=== PATIENT | male | born 1945 | race African-American/Black ===

== ENCOUNTER → 2016-03-22 | Outpatient (CLI) | payer MEDICARE, OTHER ==
--- NOTE | 2016-03-22 10:50 | XR ---
EXAM TYPE: LUMBAR SPINE X RAY SERIES COMPARISON: Postop fusion HISTORY: Postop fusion COMPARISON: 02/12/2016 FINDINGS: Alignment is anatomic. The pedicles are intact. The transverse processes are intact. There is no s pondylolysis or spondylolisthesis. Postsurgical changes are noted. Hypertrophic change of the spine noted. Vascular calcification seen. IMPRESSION: 1. Postoperative change appears in near-anatomic alignment.
== END | disposition home or self-care (01) ==
LOC: RADXRMAIN 09:52
DX: M43.26 Fusion of spine, lumbar region (principal); Z98.890 Other specified postprocedural states
CPT/HCPCS: 72100

== ENCOUNTER → 2016-05-14 | Outpatient (CLI) | payer MEDICARE, OTHER ==
--- NOTE | 2016-05-14 22:46 | XR ---
EXAMINATION TYPE: XR pelvis AP view DATE OF EXAM: 05/14/2016 8:17 PM COMPARISON: NONE HISTORY: Bilateral hip pain TECHNIQUE: Single view FINDINGS: Pelvic ring appears intact. There is moderate hypertrophic osteoarthritis in the hip joints . There is multilevel lower lumbar laminectomy defect noted. Sacroiliac joints appear intact. IMPRESSION: Moderate osteoarthritis in the hip joints. No fracture seen.
--- NOTE | 2016-05-14 22:47 | XR ---
EXAMINATION TYPE: XR Hip Bilateral Complete DATE OF EXAM: 05/14/2016 8:17 PM COMPARISON: NONE HISTORY: Bilateral hip pain TECHNIQUE: 4 views FINDINGS: AP and oblique views of both hips show moderately severe narrowing of the hip joint spaces. This is worse on the left side. There is acetabular spurring. There is femoral head spurring. I see no fracture. IMPRESSION: Moderately severe hypertrophic osteoarthritis. No fracture seen.
== END ==
LOC: RADXRMAIN 12:23
PROVIDERS: ATTEND Internal Medicine
DX: M16.0 Bilateral primary osteoarthritis of hip (principal)
CPT/HCPCS: 72170; 73521

== ENCOUNTER → 2016-05-15 | Outpatient (CLI) | payer MEDICARE, OTHER ==
[2016-05-15 08:08] LABS: Anion Gap 12 mmol/L; Calcium 10.1 mg/dL (8.4-10.2); Carbon Dioxide 29 mmol/L (22-30); Chloride 101 mmol/L (98-107); Glucose 88 mg/dL (74-99); Non-African American GFR(MDRD) >60 (>60 ml/min/1.73 sqM); Sodium 142 mmol/L (137-145); Uric Acid 6.4 mg/dL (3.5-8.5)
[2016-05-15 08:13] LABS: ALT 46 U/L (21-72); AST 50 U/L (17-59); Blood Urea Nitrogen 24 mg/dL (9-20); Potassium 5.4 mmol/L (3.5-5.1)
[2016-05-15 09:11] LABS: Cholesterol 117 mg/dL (<200); HDL Cholesterol 52 mg/dL (40-60); Triglycerides 148 mg/dL (<150)
== END | disposition home or self-care (01) ==
LOC: LABWHC1 07:20
PROVIDERS: ATTEND Internal Medicine
DX: E78.5 Hyperlipidemia, unspecified (principal); I10 Essential (primary) hypertension; E11.43 Type 2 diabetes mellitus with diabetic autonomic (poly)neuropathy; M10.9 Gout, unspecified
CPT/HCPCS: 36415; 80048; 80061; 83036; 84450; 84460; 84550

== ENCOUNTER → 2016-07-28 | Outpatient (CLI) | payer MEDICARE, OTHER ==
--- NOTE | 2016-07-28 11:01 | XR ---
EXAMINATION TYPE: XR lumbar spine 2 or 3V DATE OF EXAM ORDERED: 07/28/2016 HISTORY: M47.26 spondylosis with radiculopathy M99.73 stenosis. COMPARISON: Previous study dated 03/22/2016. FINDINGS: There has been an interpedicular fusion at L3-4. Spacing material has been placed. There i s been a laminectomy extending from L3 through L5. There is a residual interpedicular screw in the ri ght side of the S1 vertebral body. There is mild spondylosis deformans in the upper lumbar spine. Alignment is normal. There is no spond ylolysis or spondylolisthesis. There has been interval change in the appearance of the spine. IMPRESSION: NO INTERVAL CHANGE IN THE APPEARANCE OF THE LUMBAR SPINE.
== END | disposition home or self-care (01) ==
LOC: RADXRMAIN 10:20
DX: M99.73 Connective tissue and disc stenosis of intervertebral foramina of lumbar region (principal); M47.26 Other spondylosis with radiculopathy, lumbar region
CPT/HCPCS: 72100

== ENCOUNTER → 2016-09-22 | Outpatient (CLI) | payer MEDICARE, OTHER ==
[2016-09-22 08:23] LABS: Appearance,Urine Clear (Clear); Bilirubin,Urine Negative (Negative); CH 30.7; CHCM 33.4; Glucose,Urine (UA) Negative (Negative); HCT 49.1 % (39.0-53.0); HDW 2.57; HGB 15.9 gm/dL (13.0-17.5); Ketones,Urine Negative (Negative); Leukocyte Esterase,Urine Negative (Negative); MCH 29.9 pg (25.0-35.0); MCHC 32.5 g/dL (31.0-37.0); MCV 92.3 fL (80.0-100.0); Mean Platelet Volume 8.5; Nitrite,Urine Negative (Negative); Protein,Urine Negative (Negative); RBC 5.32 m/uL (4.30-5.90); RDW 15.2 % (11.5-15.5); Specific Gravity,Urine 1.014 (1.001-1.035); UA Billing (MACRO vs. MICRO) CHEM; Urobilinogen,Urine <2.0 mg/dL (<2.0); WBC 8.2 k/uL (3.8-10.6)
[2016-09-22 08:27] LABS: Partial Thromboplastin Time 25.2 sec (22.0-30.0); Prothrombin Time 10.2 sec (9.0-12.0)
[2016-09-22 08:54] LABS: ALT 57 U/L (21-72); AST 42 U/L (17-59); Alkaline Phosphatase 111 U/L (38-126); Anion Gap 14 mmol/L; Blood Urea Nitrogen 24 mg/dL (9-20); Calcium 10.3 mg/dL (8.4-10.2); Carbon Dioxide 27 mmol/L (22-30); Chloride 99 mmol/L (98-107); Glucose 126 mg/dL (74-99); Non-African American GFR(MDRD) >60 (>60 ml/min/1.73 sqM); Potassium 4.7 mmol/L (3.5-5.1); Sodium 140 mmol/L (137-145); Total Bilirubin 1.2 mg/dL (0.2-1.3); Total Protein 8.4 g/dL (6.3-8.2)
== END | disposition home or self-care (01) ==
LOC: LABPAT 07:46
PROVIDERS: ATTEND Orthopaedic Surgery
DX: Z01.812 Encounter for preprocedural laboratory examination (principal)
CPT/HCPCS: 80053; 81003; 85027; 85610; 85730; 87070

== ENCOUNTER → 2016-09-27 | Outpatient (CLI) | payer MEDICARE, OTHER | END | disposition home or self-care (01) | LOC: LABPAT 08:07 | PROVIDERS: ATTEND Orthopaedic Surgery | DX: Z01.810 Encounter for preprocedural cardiovascular examination (principal); I10 Essential (primary) hypertension | CPT/HCPCS: 86850; 86900; 86901; 93005 ==

== ENCOUNTER 2016-10-04 07:30 | Inpatient (IN) | payer MEDICARE, OTHER ==
[2016-09-24 15:07] VITALS: BMI 28.1
--- NOTE | 2016-09-27 05:13 | CONS ---
Mr. Beckford is scheduled for left hip arthroplasty by Dr. Tay Cheema on the of this month at [facility]. We have been asked to see him in general for his medical concerns and clearance. Mr. Beckford besides the osteoarthritis of the left hip has had type 2 diabetes, hypertension, hyperlipidemia, history of gout and history of lower lumbar osteoarthritis. He has had previous lumbar surgeries. He also has had left carotid revascularization and he also has had carpal tunnel surgery in both hands, a placement of cardiac stent for his coronary artery disease. His home medications include amlodipine 10 mg daily for blood pressure along with hydrochlorothiazide 50 mg daily and Ramipril 2.5 mg daily. He takes atenolol 50 mg for his underlying heart disease along with metformin 500 mg 1 twice a day for diabetes, allopurinol 100 mg 2 tablets daily to lower his uric acid and atorvastatin 20 mg for his elevated cholesterol and meloxicam which he is to stop at least one week prior to surgery 15 mg daily for osteoarthritic discomfort. Apparently, he has had some reaction with over sedation on diazepam. REVIEW OF SYSTEMS: He denies any chest pain or unusual shortness of breath. No nausea, vomiting. Denied any urinary or bowel symptomatology. No unusual leg edema. SOCIAL HISTORY: He lives locally in the [facility]. He quit smoking back in 2012. Denies any excessive alcohol usage. FAMILY HISTORY: Had a brother with diabetes. Physical examination reveals him to be a pleasant gentleman in no acute distress. He is pleasant and alert with BMI 28.4 with his weight 186 and height 68 inches. Blood pressure was 122/80. Respirations were 14. Head and neck is unremarkable. No definite adenopathy, thyromegaly or bruits in the neck. Lungs were clear to auscultation. HEART: Regular without murmurs. ABDOMEN: Soft and nontender without rebound, guarding or masses. Extremities reveal no unusual edema. Neurologically, he is alert and oriented. Cranial nerves intact. No focal weakness noted. Patient did have laboratory values performed and urinalysis, which has generally been acceptable and satisfactory for upcoming surgery and EKG apparently was suppose to be done at [facility] and at this point generally I see no contraindication to planned surgery. The patient does have coronary artery disease along with the other comorbidities as stated above, but they do appear to be stable. He is to take his beta tiffany, atenolol, with a small sip of water in the morning. He will be followed with Accu-Cheks for his blood sugar postop and coverage if necessary and not to take any aspirin or anti- inflammatory medications one week prior to his surgery. Once again, his upcoming surgery is on the at [facility] in [place]. BRANDIN
[~2016-10-04 07:30] MED LIST: ACETAMINOPHEN TAB 500 MG TAB PO ONE; DEXAMETHASONE SOD PHOSPHATE 10 MG/ML 1 ML VIAL IV ONE; HYDROmorphone 1 MG/ML 1 ML SYRINGE IVP PRN; MELOXICAM 7.5 MG TAB PO ONE; ONDANSETRON 4 MG/2 ML VIAL IVP ONE; TRANEXAMIC ACID 1,000 MG in SODIUM CHLORIDE 0.9% 100 ML IVPB ONE; ceFAZolin 2 GM in SODIUM CHLORIDE 0.9% 100 ML IVPB ONE
[2016-10-04] MEDS: LACTATED RINGERS 1,000 ML IV SCH (11:21)
[2016-10-04] MEDS ORDERED: LIDOCAINE 1% 20 ML VIAL (10MG/ML) FOR IV START INTRADERMA ONE (11:24)
[2016-10-04 11:27] LABS: Glucose,Whole Blood 125 mg/dL (75-99)
[2016-10-04] MEDS ORDERED: MIDAZOLAM 2 MG/2 ML VIAL IVP ONE (11:37)
[2016-10-04] MEDS ORDERED: ROPIVACAINE 246.25 MG, EPINEPHrine 0.5 MG, KETOROLAC 30 MG, cloNIDine HCL/PF 80 MCG, WA... MISCELLANE ONE ×5 (12:47)
[2016-10-04] MEDS ORDERED: MIDAZOLAM 2 MG/2 ML VIAL ONE (12:56)
[2016-10-04] MEDS ORDERED: ONDANSETRON 4 MG/2 ML VIAL ONE (12:56)
[2016-10-04] MEDS ORDERED: fentaNYL (PF) 50 MCG/ML 2 ML AMP ONE (12:56)
[2016-10-04] MEDS ORDERED: TRANEXAMIC ACID 1,000 MG/10 ML VIAL ONE (12:56)
[2016-10-04] MEDS ORDERED: NEOSTIGMINE 1 MG/ML 10 ML VIAL ONE (12:56)
[2016-10-04] MEDS ORDERED: SODIUM CHLORIDE 0.9% 100 ML BAG ONE (12:56)
[2016-10-04] MEDS ORDERED: SUCCINYLCHOLINE CHLORIDE 100 MG/5 ML SYR IV ONE (12:56)
[2016-10-04] MEDS ORDERED: HYDROmorphone (PF) 1 MG/ML ONE (12:56)
[2016-10-04] MEDS ORDERED: LIDOCAINE 1% INJ 10MG/ML (20 ML MDV) ONE (12:56)
[2016-10-04] MEDS ORDERED: GLYCOPYRROLATE 0.2 MG/ML 2 ML VIAL ONE (12:56)
[2016-10-04] MEDS ORDERED: ROCURONIUM BROMIDE 10 MG/ML 10 ML VIAL IV ONE (12:56)
[2016-10-04] MEDS ORDERED: NALOXONE 0.4 MG/ML 1 ML VIAL IV PRN (12:59)
[2016-10-04] MEDS ORDERED: DIAZEPAM 5 MG TAB PO PRN ×2 (12:59)
[2016-10-04] MEDS ORDERED: HYDROmorphone 1 MG/ML 1 ML SYRINGE IVP PRN ×3 (12:59)
[2016-10-04] MEDS ORDERED: ONDANSETRON 4 MG/2 ML VIAL IVP PRN (12:59)
[2016-10-04] MEDS ORDERED: MAGNESIUM HYDROXIDE 2,400 MG/10 ML CUP PO PRN (12:59)
[2016-10-04] MEDS ORDERED: ceFAZolin 3,000 MG in SODIUM CHLORIDE 0.9% IRRIGATIO 3,000 ML IRRIGATION ONE (13:36)
[2016-10-04] MEDS ORDERED: LACTATED RINGERS 1,000 ML IV ONE (14:21)
--- NOTE | 2016-10-04 15:01 | FL ---
Fluoroscopy HISTORY: Hip replacement 17 seconds fluoroscopy time supplied to the referring clinician. 2 intraoperative C-arm images docum ent the procedure. See dictated report from orthopedic surgery.
--- NOTE | 2016-10-04 15:01 | XR ---
Limited left hip HISTORY: Anterior hip replacement Intraoperative C-arm images document the procedure
--- NOTE | 2016-10-04 15:10 | XR ---
EXAMINATION TYPE: XR Hip Limited LT DATE OF EXAM: 10/04/2016 CLINICAL HISTORY: Left hip pain and osteoarthritis. TECHNIQUE: Single AP portable view of left hip is obtained postoperatively. COMPARISON: 05/14/2016 FINDINGS: Metallic hardware from left hip arthroplasty is seen and appears satisfactory in alignment and position. There is evidence of recent surgery with subcutaneous gas noted laterally. Calcific a theromatous changes are seen of the femoral artery. Hypertrophic osseous changes remain involving the acetabulum within these affected than the ischial t uberosity. IMPRESSION: Metallic hardware from left hip arthroplasty is satisfactory in position.
[2016-10-04 15:11] LABS: Glucose,Whole Blood 166 mg/dL (75-99)
--- NOTE | 2016-10-04 15:15 | P.OP ---
Date of Procedure: 10/04/16 Preoperative Diagnosis: Severe osteoarthritis left hip Postoperative Diagnosis: Severe osteoarthritis left hip Procedure(s) Performed: Left total hip arthroplasty with a direct anterior approach Implants: Ferguson and nephew Polarstem size 3 standard Ferguson [employer] Nephew R3, 3 hole acetabular shell, 52 mm Ferguson [employer] Nephew reflection 6.5 mm cancellus screw, 20 mm 2 Ferguson [employer]hew R3, XLPE 20 acetabular liner Ferguson & Nephew Oxinium femoral head 36 m, +0 All components were press-fit. The articulation is ceramic on polyethylene. Anesthesia: GETA Surgeon: Tay Cheema Dental Laboratory Assistant #1: Johanny Delgado Estimated Blood Loss (ml): 100 Pathology: other (Femoral head) Condition: stable Disposition: PACU Indications for Procedure: After failure of conservative treatment we discussed the surgical and nonsurgical treatment options at length. Patient wishes to proceed with a total hip arthroplasty with a direct anterior approach. Complications specific to this procedure were discussed at length, including but not limited to infection, leg length discrepancy, dislocation, and nerve injury. Patient is aware of all these complications and informed consent was obtained Operative Findings: The operative findings are consistent with severe osteoarthritis of the left hip Description of Procedure: Patient was seen and evaluated in the preoperative area, consent was reviewed, and the surgical site was marked with a skin marker. Patient was then brought to the operating room and given prophylactic antibiotics intravenously. 1 g of Tranexamic acid was also given. A spinal anesthetic was attempted, but was not successful. A general anesthetic was administered by the anesthesia department. The patient was then placed on the [place] table with the bony prominences well-padded. The hip area was then prepped and draped in usual sterile fashion. A universal timeout was then performed, which confirmed the patient's name, surgical site, ALLERGIES, and procedure being performed. Next the incision site was located at 1 cm distal and 1 cm lateral to the anterior superior iliac spine. The skin and subcutaneous tissues were sharply incised. Incision was carefully dissected down to the fascia overlying the tensor fascia dayan muscle. This fascia was then incised in line with the incision. Next, using blunt finger dissection, the tensor fascia dayan muscle was dissected off its investing fascia. The muscle was then carefully retracted laterally with a cobra retractor over the lateral neck of the femur. Next, the circumflex vessels were identified and cauterized using the AquaMantis device. The anterior hip capsule was then exposed. The capsule was then opened and an inverted T fashion. Cobra retractors were then placed intracapsularly. The proximal femur was then visualized. The femoral neck was then osteotomized appropriate level above the lesser trochanter. Small amount of traction was placed with the [place] table. A small wedge of bone was then removed from the remaining femoral head. Next, using a corkscrew femoral head was easily removed from the acetabulum. On gross visual inspection, the femoral head had complete loss of articular cartilage in multiple periarticular osteophytes. Attention was then turned to the acetabulum. the acetabulum was exposed and any remaining labrum was excised. Sequential reaming of the acetabulum was performed using fluoroscopic guidance. When the appropriate size was reached, a trial was then placed. The position and fit of the trial was checked with fluoroscopy. The trial was then removed. Then, using fluoroscopic guidance, the final implant was impacted at 20 of anteversion and 40 of abduction, and fully seated in the acetabulum. 2 screws were then placed in the acetabulum. Again fluoroscopy was used to check position of the screws. Next, the liner was then impacted, with a 20 elevated liner located in the anterior superior quadrant. Component locking was confirmed. Attention was then directed to the femur. With the aid of the [place] table, the femur was externally rotated to approximately 130, extended, and abducted under the opposite leg. A side hook was then placed under the proximal femur, and the side hook elevator was used to elevate the proximal femur. Retractors were then placed. A capsular release was performed, as well as a release of the conjoined tendon, which afforded excellent visualization of the proximal femur. Next, a box osteotome was used to lateralize the proximal femur. A hand candy cutter was then used to locate the femoral canal. Sequential broaching was then performed with appropriate size which afforded excellent fixation in the proximal femur. A trial was then placed with appropriate head and neck, and the hip was gently reduced with the aid of the [place] table. Fluoroscopy was then used to check position of the components, as well as to ensure equal leg lengths. The hip was then gently dislocated and the trials were then removed. Final implants were then impacted and the hip was again reduced. Final fluoroscopic x-rays confirmed that the components were in anatomic position, as well as equal leg lengths. The hip was also taken through range of motion, and found to be stable. The hip was then copiously irrigated with antibiotic solution with pulsatile lavage. The hip was then irrigated with Irrisept solution. The soft tissues were then injected with a ropivacaine solution, which consisted of 246.25 mg of ropivacaine, 0.5 mg of epinephrine, 30 mg of Toradol, 80 g of clonidine, and 48.45 mL of sterile water, for a total of 100 mL of fluid injected. A second dose of 1 g of Tranexamic acid was also given. the fascia was then closed with 2-0 strata fix suture. The subcutaneous tissue was closed with 3-0 Vicryl. The subcuticular tissue was closed with 3-0 strata fix suture. The skin was then closed with Dermabond tape. The patient was then transferred to the recovery room in stable condition. The assistant quality manager VERENA Shelton was required due to the complexity of surgery, and the need for skilled pediatric medical assistant for positioning, draping, exposure, retraction, and closure of the wound.
[2016-10-04] MEDS ORDERED: HYDROmorphone 2 MG/ML 1 ML SYRINGE IVP ONE (16:14)
[2016-10-04 16:16] VITALS: RESP 16
[2016-10-04] MEDS ORDERED: HYDROmorphone 1 MG/ML 1 ML SYRINGE IVP ONE (16:20)
[2016-10-04 17:09] LABS: Glucose,Whole Blood 152 mg/dL (75-99)
[2016-10-04] MEDS: HYDROcodone/APAP 5-325MG 1 EACH TAB PO PRN (17:25)
[2016-10-04] MEDS: ceFAZolin 2 GM in SODIUM CHLORIDE 0.9% 100 ML IVPB SCH ×2 (17:25→23:20)
[2016-10-04] MEDS: SODIUM CHLORIDE 0.9% 1,000 ML IV SCH (17:25)
[2016-10-04] MEDS: hydrOXYzine PAMOATE 25 MG CAP PO PRN (17:26)
--- NOTE | 2016-10-04 17:54 | P.PN ---
Progress Note - Text The patient is a 71-year-old gentleman who underwent left hip arthroplasty earlier today by Dr. Cheema. Please see my initial medical consultation. Patient is sitting up in bed, alert and oriented. He does complain of some back discomfort for which he has had problems in the past. He denies any chest pain or shortness of breath. No nausea or vomiting. Vital signs reveal a pulse of 66 with normal respirations 16 and blood pressure 118/55 but it was as low as 98/52. He is 97% saturated on 3 L nasal cannula. Lung and heart examination is clear. Heart regular. Abdomen nontender. No unusual distal leg edema. No focal neurological deficits. Blood sugar 152. Impressions and plans: This gentleman has completed left hip arthroplasty today by Dr. Cheema. Patient does have underlying comorbidities which include type 2 diabetes, hypertension, hyperlipidemia, history of gout and also history of lower lumbar degenerative joint disease and previous lumbar surgeries. His other surgeries include left carotid revascularization and carpal tunnel surgery in both hands and also previous cardiac stenting for his underlying coronary artery disease. Medications have been reviewed and most of his home medications renewed although we will hold his Ramipril and hydrochlorothiazide and tramadol that he was on at home which may need to be adjusted for further blood pressure readings. Patient at this time may be progressed as per orthopedics. Please call if any questions concerns or problems.
[2016-10-04 20:31] LABS: Glucose,Whole Blood 190 mg/dL (75-99)
[2016-10-04] MEDS: SENNOSIDES-DOCUSATE SODIUM 1 EACH TAB PO SCH (20:47)
[2016-10-04] MEDS: metFORMIN 500 MG TAB PO SCH (20:47)
[2016-10-04] MEDS: ALLOPURINOL 100 MG TAB PO SCH (20:47)
[2016-10-04] MEDS: ASPIRIN 325 MG TAB PO SCH (20:48)
[2016-10-05] MEDS: hydrOXYzine PAMOATE 25 MG CAP PO PRN (04:55)
[2016-10-05] MEDS: HYDROcodone/APAP 5-325MG 1 EACH TAB PO PRN ×3 (04:56→18:51)
[2016-10-05] MEDS: SODIUM CHLORIDE 0.9% 1,000 ML IV SCH ×2 (06:04→20:32)
[2016-10-05] MEDS: LACTATED RINGERS 1,000 ML IV SCH (06:04)
[2016-10-05 07:25] LABS: Basophils % (A) 0 %; CHCM 32.7; Eosinophils % (A) 0 %; HCT 42.4 % (39.0-53.0); HDW 2.54; HGB 14.1 gm/dL (13.0-17.5); Luc # (Auto) 0.19; Luc % (Auto) 2; Lymphocytes # (A) 1.2 k/uL (1.0-4.8); Lymphocytes % (A) 10 %; MCH 30.7 pg (25.0-35.0); MCHC 33.4 g/dL (31.0-37.0); MCV 92.2 fL (80.0-100.0); Mean Platelet Volume 7.3; Monocytes # (A) 0.9 k/uL (0-1.0); Monocytes % (A) 8 %; Neutrophils # (A) 9.4 k/uL (1.3-7.7); Neutrophils % (A) 80 %; RDW 13.6 % (11.5-15.5); WBC 11.7 k/uL (3.8-10.6); WBC (Perox) 11.78
[2016-10-05 07:36] LABS: Glucose,Whole Blood 105 mg/dL (75-99)
[2016-10-05] MEDS: ALLOPURINOL 100 MG TAB PO SCH ×2 (08:12→20:30)
[2016-10-05] MEDS: amLODIPine 10 MG TAB PO SCH (08:12)
[2016-10-05] MEDS: ASPIRIN 325 MG TAB PO SCH ×2 (08:12→20:30)
[2016-10-05] MEDS: ATENOLOL 50 MG TAB PO SCH (08:12)
[2016-10-05] MEDS: ATORVASTATIN 20 MG TAB PO SCH (08:12)
[2016-10-05] MEDS: MELOXICAM 7.5 MG TAB PO SCH (08:12)
[2016-10-05] MEDS: metFORMIN 500 MG TAB PO SCH ×2 (08:14→20:30)
--- NOTE | 2016-10-05 08:28 | P.PN ---
Progress Note - Text The patient is a 71 year old gentleman who underwent left hip arthroplasty yesterday by Dr. Tay Cheema. This morning he is sitting up at the side of the bed. States he had intermittent sleep. He denies any chest pain or shortness of breath. No nausea or vomiting this morning. The patient does have comorbidities with history of type 2 diabetes, hypertension, hyperlipidemia, history of gout, previous degenerative joint disease of the lumbar spine for which she is had previous surgeries. He also has underlying coronary artery disease with stenting. Left carotid revascularization and carpal tunnel surgeries in the past. This morning vital signs reveal temperature 98.3 with a pulse of 98 and blood pressure 108/56. He is 98% saturated on room air. Lung and heart examination is clear and regular. Abdomen is nontender. No unusual distal edema. No focal neurological deficits noted. Laboratory results: Blood sugars 105. White count 11.7 with a hemoglobin 14.1 and a platelet count of 239. Impressions and plans: Overall this 71-year-old -[place] gentleman appears to be doing well post left hip arthroplasty. Continue to advance as per orthopedics. We have adjusted some of his blood pressure medications and hold his diuretics and ramipril and will follow blood pressures as discussed with patient at bedside this morning.
[2016-10-05] MEDS ORDERED: ASPIRIN 325 MG TAB PO SCH (09:00)
[2016-10-05 11:41] LABS: Glucose,Whole Blood 142 mg/dL (75-99)
[2016-10-05] MEDS: MULTIVITAMINS, THERA 1 EACH TAB PO SCH (12:40)
--- NOTE | 2016-10-05 14:16 | P.PN ---
Subjective Principal diagnosis: Status post left total hip arthroplasty, primary osteoarthritis left hip This is a well-appearing 71-year-old male who is status post left total hip arthroplasty. This is postoperative day #1. Patient is seen and evaluated at bedside with Dr. Tay Cheema. Patient states he's been up and walking to the bathroom. Overall, patient has no complaints. Objective - Vital Signs Vital signs: Vital Signs Temp 98.3 F 10/05/16 07:27 Pulse 98 10/05/16 07:27 Resp 16 10/04/16 16:15 BP 108/56 10/05/16 07:27 Pulse Ox 98 10/05/16 07:27 Intake & Output 10/04/16 10/05/16 10/05/16 18:59 06:59 18:59 Intake Total 1601 1335 300 Output Total 100 1000 Balance 1501 335 300 Intake: IV 1601 Intake, IV Titration 835 Amount Sodium Chloride 0.9% 1, 735 000 ml @ 70 mls/hr IV . [id number] [facility] Rx#:[id number] ceFAZolin 2 gm In Sodium 100 Chloride 0.9% 100 ml @ 100 mls/hr IVPB ONCE ONE Rx#:[id number] Oral 500 300 Output: Urine 1000 Estimated Blood Loss 100 Other: Voiding Method Urinal # Voids 400 1 - Exam Vital signs are stable. Patient is in no acute distress and is alert and oriented 3. Calf is soft and nontender. Surgical dressing is intact with minimal drainage present. Neurovascular status intact. Patient has full foot and ankle motion. - Labs CBC & Chem 7: 10/05/16 07:05 Labs: Abnormal Lab Results - Last 24 Hours (Table) 10/04/16 10/04/16 10/04/16 Range/Units 15:08 17:04 20:29 WBC (3.8-10.6) k/uL Neutrophils # (1.3-7.7) k/uL POC Glucose (mg/dL) 166 H 152 H 190 H (75-99) mg/dL 10/05/16 10/05/16 10/05/16 Range/Units 07:05 07:35 11:39 WBC 11.7 H (3.8-10.6) k/uL Neutrophils # 9.4 H (1.3-7.7) k/uL POC Glucose (mg/dL) 105 H 142 H (75-99) mg/dL Assessment and Plan (1) Primary osteoarthritis of left hip Status: Acute (2) S/P total hip arthroplasty Status: Acute Plan: Continue routine postop care. Continue antocoagulation. Weightbearing as tolerated with a walker Daily dressing changes, keep incision clean and dry Possible discharge home or to rehab in the next 1-2 days.
[2016-10-05 16:24] LABS: Glucose,Whole Blood 137 mg/dL (75-99)
[2016-10-05] MEDS: SENNOSIDES-DOCUSATE SODIUM 1 EACH TAB PO SCH (20:30)
[2016-10-06 01:37] VITALS: BP 117/93; PULSE 90; TEMP 98.2
[2016-10-06] MEDS: HYDROcodone/APAP 5-325MG 1 EACH TAB PO PRN ×2 (05:23→16:47)
[2016-10-06] MEDS: LACTATED RINGERS 1,000 ML IV SCH (07:55)
[2016-10-06] MEDS: ASPIRIN 325 MG TAB PO SCH (07:56)
[2016-10-06] MEDS: ALLOPURINOL 100 MG TAB PO SCH (07:56)
[2016-10-06] MEDS: SODIUM CHLORIDE 0.9% 1,000 ML IV SCH (07:56)
[2016-10-06] MEDS: ATORVASTATIN 20 MG TAB PO SCH (07:57)
[2016-10-06] MEDS: MULTIVITAMINS, THERA 1 EACH TAB PO SCH (07:57)
[2016-10-06] MEDS: MELOXICAM 7.5 MG TAB PO SCH (07:57)
[2016-10-06] MEDS: amLODIPine 10 MG TAB PO SCH (07:57)
[2016-10-06] MEDS: metFORMIN 500 MG TAB PO SCH (07:57)
[2016-10-06] MEDS: ATENOLOL 50 MG TAB PO SCH (07:57)
--- NOTE | 2016-10-06 08:25 | P.PN ---
Progress Note - Text The patient is a 71-year-old gentleman who underwent total left hip arthroplasty [address] Tay Cheema. Generally he has been doing well and this morning he is sitting up eating breakfast at the side of the bed. Denies any chest pain or shortness of breath. No nausea or vomiting. Patient does have other comorbidities include his type 2 diabetes, hypertension, hyperlipidemia, gout, underlying general joint disease of the lumbar spine for which he has had previous surgery and his also had underlying coronary artery disease with previous stenting and left carotid revascularization in the past. Bilateral carpal tunnel Presently though he is sitting up at the side of the bed. Alert and oriented. Vital signs reveal temperature 98.2 with a pulse of 90 respirations 16 and blood pressure 117/93 and he is 93% saturated on room air. Lung and heart examination is clear and regular. Abdomen nontender. No unusual distal edema noted. No focal weakness. Laboratory results: Yesterday hemoglobin was 14.1 with a white count of 11.7. Blood sugars have been running in the mid to lower 100 range. Last 137. Impressions and plans: At this point continued to progress as per orthopedics. When discharged home patient may resume his home medications. Patient has a follow-up appointment for his medical concerns in early October and he will call if any questions, concerns or problems.
--- NOTE | 2016-10-06 09:32 | P.DS ---
Providers Date of admission: 10/04/16 10:46 Expected date of discharge: 10/06/16 Attending physician: Tay Cheema Consults: 10/04/16 12:59 Consult Physician Routine Consulting Provider: Partha Buchanan Reason/Comments: medical management Do you want consulting provider notified?: Yes Primary care physician: Partha Buchanan - Discharge Diagnosis(es) (1) Primary osteoarthritis of left hip Current Visit: Yes Status: Acute (2) S/P total hip arthroplasty Current Visit: Yes Status: Acute Hospital Course: This is a 71-year-old male with known history of degenerative arthritis of the left hip. The patient presents for evaluation. After discussion and consideration patient elects to proceed with total hip arthroplasty. The patient is seen preoperatively by Dr. Cheema and cleared for surgery. Patient is admitted to [facility] on 10/04/2016 for total hip arthroplasty. The procedures performed without complication or sequelae. The patient is doing well postoperatively. Labs and vital signs are stable on day of discharge. On day of discharge patient's hip incision is healing well. There is minimal erythema. There is minimal drainage noted at this time. There is minimal soft tissue swelling to the hip and thigh. Patient has full foot and ankle motion without difficulty or pain. Neurovascular status to the left lower extremity is intact. Patient is discharged home in good condition.Please see med rec for accurate list of home medications. Plan - Discharge Summary New Discharge Prescriptions: New Aspirin 325 mg PO BID #60 tab HYDROcodone/APAP 5-325MG [[place] 5-325] 1 - 2 tab PO Q4-6H PRN #90 tab PRN Reason: Pain Sennosides-Docusate Sodium [Senokot-S] 1 tab PO BID #60 tablet No Action Aspirin 325 mg PO DAILY Ramipril [Altace] 2.5 mg PO DAILY Meloxicam [Mobic] 7.5 mg PO DAILY Atorvastatin [Lipitor] 20 mg PO DAILY Atenolol [Tenormin] 50 mg PO DAILY traMADol HCL [Ultram] 50 mg PO TID PRN PRN Reason: Pain metFORMIN HCL [Glucophage] 500 mg PO BID amLODIPine [Norvasc] 10 mg PO DAILY Hydrochlorothiazide [Hydrodiuril] 50 mg PO DAILY Allopurinol [Zyloprim] 100 mg PO BID Multivitamin [Men's Multi-Vitamin] 1 tab PO DAILY Discharge Medication List Allopurinol [Zyloprim] 100 mg PO BID 09/24/16 [History] Aspirin 325 mg PO DAILY 09/24/16 [History] Atenolol [Tenormin] 50 mg PO DAILY 09/24/16 [History] Atorvastatin [Lipitor] 20 mg PO DAILY 09/24/16 [History] Hydrochlorothiazide [Hydrodiuril] 50 mg PO DAILY 09/24/16 [History] Meloxicam [Mobic] 7.5 mg PO DAILY 09/24/16 [History] Multivitamin [Men's Multi-Vitamin] 1 tab PO DAILY 09/24/16 [History] Ramipril [Altace] 2.5 mg PO DAILY 09/24/16 [History] amLODIPine [Norvasc] 10 mg PO DAILY 09/24/16 [History] metFORMIN HCL [Glucophage] 500 mg PO BID 09/24/16 [History] traMADol HCL [Ultram] 50 mg PO TID PRN 09/24/16 [History] Aspirin 325 mg PO BID #60 tab 10/06/16 [Rx] HYDROcodone/APAP 5-325MG [[place] 5-325] 1 - 2 tab PO Q4-6H PRN #90 tab 10/06/16 [ Rx] Sennosides-Docusate Sodium [Senokot-S] 1 tab PO BID #60 tablet 10/06/16 [Rx] Follow up Appointment(s)/Referral(s): [facility], [NON-STAFF] - Tay Cheema DO [Doctor of Osteopathic Medicine] - 2 Weeks Activity/Diet/Wound Care/Special Instructions: Weightbearing as tolerated with walker May shower after 2 days if no drainage from the incision Follow-up with [facility] in 2 weeks with any questions or concerns Discharge Disposition: HOME WITH HOME HEALTH SERVICES
== END 2016-10-06 17:09 | disposition home health service (06) | DRG 470 ==
LOC: 2ORMAIN 10:46 → 3SUR 15:11
PROVIDERS: ADMIT Orthopaedic Surgery; ATTEND Orthopaedic Surgery
PROC: 0SRB04A Replacement of Left Hip Joint with Ceramic on Polyethylene Synthetic Substitute, Uncemented, Open Approach (ICD-10-PCS; principal; 2016-10-04 12:30)
DX: M16.12 Unilateral primary osteoarthritis, left hip (principal); I10 Essential (primary) hypertension; E11.9 Type 2 diabetes mellitus without complications; E78.00 Pure hypercholesterolemia, unspecified; E78.5 Hyperlipidemia, unspecified; I25.10 Atherosclerotic heart disease of native coronary artery without angina pectoris; M10.9 Gout, unspecified; Z82.49 Family history of ischemic heart disease and other diseases of the circulatory system; Z83.3 Family history of diabetes mellitus; Z87.891 Personal history of nicotine dependence; Z79.899 Other long term (current) drug therapy; Z79.84 Long term (current) use of oral hypoglycemic drugs; Z95.5 Presence of coronary angioplasty implant and graft
CPT/HCPCS: 73501; 85025; 86850; 86891; 86900; 86901; 88300

== ENCOUNTER → 2017-09-06 | Outpatient (CLI) | payer MEDICARE, OTHER ==
[2017-09-02 13:31] VITALS: BMI 28.1
[2017-09-06 12:33] VITALS: BP 158/76; PULSE 69; RESP 18
--- NOTE | 2017-09-06 13:18 | P.CONS ---
History of Present Illness - Reason for Consult Consult date: 09/06/17 - Chief Complaint Low back pain - History of Present Illness This is a 72-year-old gentleman with history of 3 back surgeries the last one was about 3 years ago. His pain did not get better after the last surgery. His pain is mostly on the right side of his back right above the right iliac crest posteriorly. He denies any pain at rest however when he walks around this pain becomes severe and it goes away when he sits down. The pain does not wake the patient up at night. The pain does not radiate down his lower extremities. He denies any numbness or tingling in the lower extremities. He denies any bowel or bladder dysfunction or any weakness in the lower extremities. He failed to respond to physical therapy previously. He had injections in his back before his first back surgery as he states. He occasionally uses back brace to help with this pain Past Medical History Past Medical History: Diabetes Mellitus, Hyperlipidemia, Hypertension, Osteoarthritis (OA) History of Any Multi-Drug Resistant Organisms: None Reported Past Surgical History: Back Surgery, Orthopedic Surgery Additional Past Surgical History / Comment(s): Right carotid endarterectomy, back surg. x3, left shoulder rotator cuff repair,carpal tunnel diana., L hip replacement. Hx. of ? gout in feet. States not diagnoised as Gout. Past Anesthesia/Blood Transfusion Reactions: Previous Problems w/ Anesthesia Additional Past Anesthesia/Blood Transfusion Reaction / Comm: slow to wake up once Past Psychological History: No Psychological Hx Reported Smoking Status: Former smoker Past Alcohol Use History: None Reported Additional Past Alcohol Use History / Comment(s): quit smoking 2013, smoked 1ppd since teens Past Drug Use History: None Reported - Past Family History Mother Family Medical History: No Reported History Medications and Allergies Home Medications Medication Instructions Recorded Confirmed Type Allopurinol [Zyloprim] 100 mg PO BID 09/24/16 09/06/17 History Atenolol [Tenormin] 50 mg PO DAILY 09/24/16 09/06/17 History Atorvastatin [Lipitor] 20 mg PO DAILY 09/24/16 09/06/17 History Hydrochlorothiazide [Hydrodiuril] 50 mg PO DAILY 09/24/16 09/06/17 History Meloxicam [Mobic] 15 mg PO DAILY 09/24/16 09/06/17 History Multivitamin [Men's Multi-Vitamin] 1 tab PO DAILY 09/24/16 09/06/17 History Ramipril [Altace] 2.5 mg PO DAILY 09/24/16 09/06/17 History amLODIPine [Norvasc] 10 mg PO DAILY 09/24/16 09/06/17 History metFORMIN HCL [Glucophage] 500 mg PO BID 09/24/16 09/06/17 History traMADol HCL [Ultram] 50 mg PO TID PRN 09/24/16 09/06/17 History Aspirin 325 mg PO BID #60 tab 10/06/16 09/06/17 Rx Sennosides-Docusate Sodium 1 tab PO BID #60 tablet 10/06/16 09/06/17 Rx [Senokot-S] Litozene 1,500 mg PO BID 09/02/17 09/06/17 History Allergies Allergy/AdvReac Type Severity Reaction Status Date / Time No Known Allergies Allergy Verified 09/06/17 12:34 Physical Exam Vitals: Vital Signs Pulse Resp BP Pulse Ox 09/06/17 12:16 69 18 158/76 97 - Constitutional General appearance: average body habitus - EENT Eyes: PERRLA - Respiratory Respiratory: bilateral: CTA - Cardiovascular Heart sounds: normal: S1, S2 - Neurologic Neurologic: CNII-XII intact - Musculoskeletal Neuro exam of the lower extremities showed areflexia and normal muscle strength symmetrically. Straight leg raising test negative bilaterally Anatoly's test negative bilaterally Internal and external rotation of the hip joints did not elicit any pain. He has well-healed scars from his previous back surgeries There is no tenderness around the area that he feels pain at on the right side of the spine and above the iliac crest. - Psychiatric Psychiatric: A&O x's 3, appropriate affect, intact judgment & insight Assessment and Plan Plan: This is a 72-year-old gentleman with history of axial right lower back pain with no radiation to the lower extremities. The patient had 3 back surgeries previously. He failed to respond to physical therapy. His pain seems mechanical. Failed back surgery syndrome He would benefit from getting lumbar medial branch block above the fusion level however we will start by doing caudal epidural steroid injection under fluoroscopic guidance for 1 time if there is no improvement in his pain then we will plan on doing the medial branch block mentioned above. The patient does not use opioids for his pain at this point.
== END | disposition home or self-care (01) ==
LOC: PNWHC3 11:49
PROVIDERS: ATTEND Anesthesiology
DX: M96.1 Postlaminectomy syndrome, not elsewhere classified (principal); M19.90 Unspecified osteoarthritis, unspecified site; E11.9 Type 2 diabetes mellitus without complications; E78.5 Hyperlipidemia, unspecified; I10 Essential (primary) hypertension; Z79.891 Long term (current) use of opiate analgesic; Z79.82 Long term (current) use of aspirin; Z79.84 Long term (current) use of oral hypoglycemic drugs; Z87.891 Personal history of nicotine dependence; Z79.899 Other long term (current) drug therapy; Z96.642 Presence of left artificial hip joint; Z98.890 Other specified postprocedural states; Z98.1 Arthrodesis status
CPT/HCPCS: 99211

== ENCOUNTER 2017-09-20 08:49 | Day surgery (SDC) | payer MEDICARE, OTHER ==
[2017-09-13 14:32] VITALS: BMI 28.1
[~2017-09-20 08:49] MED LIST changes: -ACETAMINOPHEN TAB 500 MG TAB PO ONE; -DEXAMETHASONE SOD PHOSPHATE 10 MG/ML 1 ML VIAL IV ONE; -HYDROmorphone 1 MG/ML 1 ML SYRINGE IVP PRN; +LACTATED RINGERS 1,000 ML IV SCH; -MELOXICAM 7.5 MG TAB PO ONE; -ONDANSETRON 4 MG/2 ML VIAL IVP ONE; -TRANEXAMIC ACID 1,000 MG in SODIUM CHLORIDE 0.9% 100 ML IVPB ONE; -ceFAZolin 2 GM in SODIUM CHLORIDE 0.9% 100 ML IVPB ONE
[2017-09-20 09:30] VITALS: PULSE 64; TEMP 97.8
[2017-09-20] MEDS ORDERED: LIDOCAINE 1% 20 ML VIAL (10MG/ML) FOR IV START INTRADERMA ONE (09:40)
[2017-09-20 09:52] LABS: Glucose,Whole Blood 129 mg/dL (75-99)
--- NOTE | 2017-09-20 09:58 | P.PCN ---
Date of Procedure: 09/20/17 Surgeon: Saturnino Houston Description of Procedure: PREOPERATIVE DIAGNOSIS: Lumbar post laminectomy syndrome. POSTOPERATIVE DIAGNOSIS: Lumbar post laminectomy syndrome. PROCEDURE: 1. Caudal epidural steroid injection under fluoroscopic guidance. 2. Caudal epidurogram ANESTHESIA: Local with 1% lidocaine. IV sedation. EBL: None. Surgeon: Saturnino Houston MD PROCEDURE INDICATION: This is a pleasant 72-year-old gentleman who has had previous back surgery has intractable pain in his back and down his legs. He presents today for caudal epidural steroid injection. PROCEDURE DESCRIPTION: The patient was seen and identified in the preoperative area. Risks, benefits, complications, and alternatives were discussed with the patient. The patient agreed to proceed with the procedure and signed the consent. IV was started, and vital signs were stable. Patient was taken to the OR and time out was completed. The patient was placed in the prone position on procedure table and a pillow was placed under the abdomen to reduce lumbar lordosis. The lumbosacral area was prepped and draped in the usual sterile fashion. Critical pause was taken. Vital signs were closely monitored during the procedure. Using lateral fluoroscopy the anterior-posterior plates of the sacrum were identified and the skin and deeper tissues corresponding into sacrococcygeal ligament were anesthetized using approximately 3 mL of 1% lidocaine. Then under fluoroscopy, a 3-1/2-inch 20-gauge spinal needle was guided through the sacrococcygeal ligament, and into the epidural space. After negative aspiration , a 2 mL of omnipaque-180 contrast dye was injected with excellent epidurogram. Again after negative aspiration for CSF, blood, and with no paresthesias, depomedrol 80mg,with 4 ml of preservative free normal saline solution was injected with washout of epidurogram. Needle was withdrawn intact. Skin was cleansed, and bandage was applied. COMPLICATIONS: None DISPOSITION / PLANS: The patient was placed in a supine position and transferred to the recovery area in a stable condition for observation and was discharged from the recovery room after meeting discharge criteria. Home discharge instructions given to the patient by the staff. The patient was reexamined prior to discharge. The patient will schedule a follow up in the clinic in 2-4 weeks.
[2017-09-20] MEDS ORDERED: IV FLUID CONTINUATION 1,000 ML IV ONE (10:29)
--- NOTE | 2017-09-20 10:29 | FL ---
EXAMINATION TYPE: FL guided pain mgmt statistic DATE OF EXAM: 09/20/2017 HISTORY: Flouroscopy time 5 seconds of fluoroscopy provided. IMPRESSION: 1. Fluoroscopy time.
[2017-09-20 10:52] VITALS: RESP 18
[2017-09-20 10:54] VITALS: BP 130/79
== END 2017-09-20 11:13 | disposition home or self-care (01) ==
LOC: ORPAIN 08:49
PROVIDERS: ATTEND Pain Medicine Pain Medicine
DX: M54.5 Low back pain (principal); M96.1 Postlaminectomy syndrome, not elsewhere classified; E11.9 Type 2 diabetes mellitus without complications; E78.5 Hyperlipidemia, unspecified; I10 Essential (primary) hypertension; M19.90 Unspecified osteoarthritis, unspecified site; Z96.642 Presence of left artificial hip joint; Z87.891 Personal history of nicotine dependence; Z79.82 Long term (current) use of aspirin; Z79.899 Other long term (current) drug therapy; Z79.1 Long term (current) use of non-steroidal anti-inflammatories (NSAID); Z79.84 Long term (current) use of oral hypoglycemic drugs
CPT/HCPCS: 62323; J1030; J3010

== ENCOUNTER → 2017-10-18 | Outpatient (CLI) | payer MEDICARE, OTHER ==
[2017-10-18 13:56] VITALS: BP 118/69; PULSE 66; RESP 18
--- NOTE | 2017-10-18 14:16 | P.PAINPG ---
Subjective Progress Note Date: 10/18/17 Principal diagnosis: Spinal stenosis, lumbar radiculopathy This very pleasant 72-year-old gentleman with history of low back pain and leg pain. He is maintained on tramadol by his primary care physician. He reports that he is undergone one caudal epidural steroid injection which has substantially improved his pain. He has reduced his tremor at all to twice daily from 3 times daily. He reports he has no pain. His biggest complaint is that he feels his body ways to much for his legs. He feels he is weak. He does do sit ups and rides a bike on a daily basis. He has not been to physical therapy for a few years. He does not do any core strengthening type exercises at home. He denies bowel or bladder dysfunction. Objective - Vital Signs Vital signs: Vital Signs Temp Pulse 66 10/18/17 13:49 Resp 18 10/18/17 13:49 BP 118/69 10/18/17 13:49 Pulse Ox 98 10/18/17 13:49 Intake & Output 10/17/17 10/18/17 10/18/17 18:59 06:59 18:59 Weight 80.739 kg - Exam General: The patient is alert and oriented. Patient is not sedated Patient answers all question appropriately. Cardiac: Heart is regular in rate and rhythm Respiratory: Clear to auscultation. No audible wheezes. Abdomen: Soft nontender nondistended. Lower extremities: Strength is normal bilaterally. Sensation is normal bilaterally. Reflexes are preserved and symmetric bilaterally. Straight leg raise is negative bilaterally. Assessment and Plan (1) Neuroforaminal stenosis of spine Narrative/Plan: Plan of Care 1. Medications: Patient will continue utilize tramadol as prescribed by his primary care physician. I've encouraged him to wean this as much as possible. 2. Interventions: Patient should follow up for repeat caudal epidural steroid injection only as a last resort. I discussed with him the risks and benefits of discontinuing his anticoagulant medications. This should not be a decision as taken lightly. 3. Referrals: Physical therapy 4. Testing: None 5. Follow-up: As needed Current Visit: Yes Status: Acute Code(s): M99.89 - OTHER BIOMECHANICAL LESIONS OF ABDOMEN AND OTHER REGIONS SNOMED Code(s): 545021283500 (2) S/P total hip arthroplasty Current Visit: No Status: Acute Code(s): Z96.649 - PRESENCE OF UNSPECIFIED ARTIFICIAL HIP JOINT SNOMED Code(s): 018840836445 PQRS Measure Charge Sheet Measure #130: Documentation of Current Meds in Medical Chart: Patient not eligible for medications to be documented Measure #226: Tobacco Use: Screen & Cessation Intervention: Pt not a tobacco user Measure #111: Pneumonia Vaccination: Pneumococcal vaccine NOT administered or previously given Measure #47: Advance Care Plan: Advance care planning discussed & documented, pt chose/unable to give Measure #412: Opioid Treatment Agreement: No documentation of signed opioid treatment agreement Measure #408: Opioid Therapy Follow-up Evaluation: Patient had NO f/u eval minimum every 3 months during opioid therapy Measure #317: Preventitive Care & Scrn High Bld Press & F/U: Pre-hypertensive or hypertensive BP documented, pt will f/u with PCP Measure #128: Body Mass Index (BMI) Screening & Follow-up: BMI documented ABOVE normal parameters - f/u documented Measure #131: Pain Assessment & Follow-up: Pain positive & plan documented Measure #431: Unhealthy Alcohol Use Preventative Care & Scrn: Patient not identified as an unhealthy alcohol user PQRS Narrative: Smoking Status Former smoker Do You Want the Pneumonia No Vaccine AT THIS TIME? Blood Pressure 118/69 Pain Intensity [Lower Back] 0 Scale Used Numeric (1 - 10) Hx Alcohol Use (MH) No Home Medications: Ambulatory Orders Allopurinol [Zyloprim] 100 mg PO BID 09/24/16 Atenolol [Tenormin] 50 mg PO DAILY 09/24/16 Atorvastatin [Lipitor] 20 mg PO DAILY 09/24/16 Hydrochlorothiazide [Hydrodiuril] 50 mg PO DAILY 09/24/16 Meloxicam [Mobic] 15 mg PO DAILY 09/24/16 Multivitamin [Men's Multi-Vitamin] 1 tab PO DAILY 09/24/16 Ramipril [Altace] 2.5 mg PO DAILY 09/24/16 amLODIPine [Norvasc] 10 mg PO DAILY 09/24/16 metFORMIN HCL [Glucophage] 500 mg PO BID 09/24/16 traMADol HCL [Ultram] 50 mg PO TID PRN 09/24/16 Aspirin 325 mg PO BID #60 tab 10/06/16 Sennosides-Docusate Sodium [Senokot-S] 1 tab PO BID #60 tablet 10/06/16 Litozene 3,000 mg PO 1500 09/02/17 Controlled Substance Measures - Controlled Substance Measures Is patient prescribed a controlled substance at discharge?: No
== END | disposition home or self-care (01) ==
LOC: PNWHC3 12:56
PROVIDERS: ATTEND Pain Medicine Pain Medicine
DX: M99.89 Other biomechanical lesions of abdomen and other regions (principal); Z96.649 Presence of unspecified artificial hip joint; Z79.899 Other long term (current) drug therapy; Z79.84 Long term (current) use of oral hypoglycemic drugs; Z79.1 Long term (current) use of non-steroidal anti-inflammatories (NSAID); Z79.82 Long term (current) use of aspirin; Z87.891 Personal history of nicotine dependence
CPT/HCPCS: 99211

== ENCOUNTER → 2019-10-03 | Outpatient (CLI) | payer MEDICARE ==
[2019-10-03 08:52] LABS: Appearance,Urine Clear (Clear); Bilirubin,Urine Negative (Negative); Blood,Urine Negative (Negative); Color,Urine Light Yellow; Glucose,Urine (UA) Negative (Negative); Ketones,Urine Negative (Negative); Leukocyte Esterase,Urine Negative (Negative); Nitrite,Urine Negative (Negative); Protein,Urine Negative (Negative); Specific Gravity,Urine 1.013 (1.001-1.035); Urobilinogen,Urine <2.0 mg/dL (<2.0)
[2019-10-03 09:10] LABS: Basophils # (A) 0.1 k/uL (0-0.2); Basophils % (A) 1 %; Eosinophils # (A) 0.2 k/uL (0-0.7); Eosinophils % (A) 3 %; HCT 49.5 % (39.0-53.0); HGB 15.8 gm/dL (13.0-17.5); Lymphocytes # (A) 1.5 k/uL (1.0-4.8); Lymphocytes % (A) 22 %; MCH 29.3 pg (25.0-35.0); MCHC 31.8 g/dL (31.0-37.0); Mean Platelet Volume 7.4; Monocytes # (A) 0.5 k/uL (0-1.0); Monocytes % (A) 7 %; Neutrophils # (A) 4.4 k/uL (1.3-7.7); Neutrophils % (A) 65 %; Platelet Count 279 k/uL (150-450); RBC 5.38 m/uL (4.30-5.90); WBC 6.8 k/uL (3.8-10.6)
[2019-10-03 09:18] LABS: Partial Thromboplastin Time 27.4 sec (22.0-30.0)
[2019-10-03 09:44] LABS: Albumin 4.8 g/dL (3.5-5.0); Calcium 10.2 mg/dL (8.4-10.2); Potassium 4.8 mmol/L (3.5-5.1); Total Bilirubin 0.7 mg/dL (0.2-1.3); Total Protein 7.6 g/dL (6.3-8.2)
== END | disposition home or self-care (01) ==
LOC: LABPAT 08:03
PROVIDERS: ATTEND Internal Medicine Interventional Cardiology
DX: Z01.818 Encounter for other preprocedural examination (principal); M48.04 Spinal stenosis, thoracic region; M48.061 Spinal stenosis, lumbar region without neurogenic claudication; E78.2 Mixed hyperlipidemia; Z79.01 Long term (current) use of anticoagulants
CPT/HCPCS: 80053; 80061; 81003; 85025; 85610; 85730

== ENCOUNTER → 2019-10-11 | Outpatient (CLI) | payer MEDICARE ==
--- NOTE | 2019-10-11 09:27 | XR ---
EXAMINATION TYPE: XR chest 2V DATE OF EXAM: 10/11/2019 COMPARISON: Chest x-ray September 21, 2010. HISTORY: Presurgical study. TECHNIQUE: Frontal and lateral views of the chest are obtained. FINDINGS: There is no new suspicious focal air space opacity, pleural effusion, or pneumothorax seen . The cardiac silhouette size is stable and upper limits of normal without radiographic change in th e aortic knob. Redemonstration of coronary stent left mid heart. Slight underlying scoliotic curvatur e with multilevel spurring in the spine is redemonstrated. IMPRESSION: No acute cardiopulmonary process. No significant change from prior.
== END | disposition home or self-care (01) ==
LOC: RADXRMAIN 08:02
PROVIDERS: ATTEND Orthopaedic Surgery Orthopaedic Surgery of the Spine
DX: Z01.818 Encounter for other preprocedural examination (principal)
CPT/HCPCS: 71046

== ENCOUNTER 2019-10-15 06:04 | Observation (INO) | payer MEDICARE ==
[2019-10-09 11:47] VITALS: BMI 29.0
[~2019-10-15 06:04] MED LIST changes: +HYDROmorphone 0.5 MG/0.5 ML SYRINGE IVP PRN; -LACTATED RINGERS 1,000 ML IV SCH; +LIDOCAINE 1% (10MG/ML) FOR IV START INTRADERMA PRN; +ONDANSETRON 4 MG/2 ML VIAL IVP ONE; +ceFAZolin 1,000 MG in SODIUM CHLORIDE 0.9% IRRIGATIO 1,000 ML IRRIGATION ONE
[2019-10-15] MEDS ORDERED: ONDANSETRON 4 MG/2 ML VIAL ONE (06:32)
[2019-10-15] MEDS ORDERED: LACTATED RINGERS 1,000 ML IV ONE ×2 (06:45→08:24)
[2019-10-15 06:52] LABS: Glucose,Whole Blood 111 mg/dL (75-99)
[2019-10-15] MEDS ORDERED: MIDAZOLAM 2 MG/2 ML VIAL ONE (07:23)
[2019-10-15] MEDS ORDERED: PROPOFOL 10 MG/ML 20 ML VIAL IV ONE (07:23)
[2019-10-15] MEDS ORDERED: PHENYLEPHRINE-0.9% NACL SYG 1 MG/10 ML SYRINGE ONE (07:23)
[2019-10-15] MEDS ORDERED: MIDAZOLAM 2 MG/2 ML VIAL IVP ONE (07:23)
[2019-10-15] MEDS ORDERED: ROCURONIUM BROMIDE 10 MG/ML 5 ML VIAL IV ONE (07:23)
[2019-10-15] MEDS ORDERED: GLYCOPYRROLATE 0.2 MG/ML 2 ML VIAL ONE (07:23)
[2019-10-15] MEDS ORDERED: LIDOCAINE 1% INJ 10MG/ML (20 ML MDV) ONE (07:23)
[2019-10-15] MEDS ORDERED: HYDROmorphone (PF) 1 MG/ML ONE (07:23)
[2019-10-15] MEDS ORDERED: SUCCINYLCHOLINE CHLORIDE 100 MG/5 ML SYR IV ONE (07:23)
[2019-10-15] MEDS ORDERED: fentaNYL (PF) 50 MCG/ML 2 ML AMP IVP ONE (07:23)
[2019-10-15] MEDS ORDERED: NEOSTIGMINE 1 MG/ML 10 ML VIAL ONE (07:23)
[2019-10-15] MEDS ORDERED: fentaNYL (PF) 50 MCG/ML 2 ML AMP ONE (07:23)
[2019-10-15] MEDS ORDERED: LIDOCAINE 0.5%-EPI 1:200,000 50 ML VIAL SQ ONE (08:04)
[2019-10-15] MEDS ORDERED: methylPREDNISolone ACETATE 80 MG/ML 1 ML VIAL INTRAARTIC ONE (08:04)
[2019-10-15] MEDS ORDERED: GELATIN SPONGE,ABSORB (LARGE) 1 EACH SPONGE TOPICAL ONE (08:04)
[2019-10-15] MEDS ORDERED: THROMBIN (BOVINE) 5,000 UNIT VIAL TOPICAL ONE (08:05)
[2019-10-15] MEDS ORDERED: HYDROmorphone 1 MG/ML 1 ML SYRINGE IVP PRN (09:22)
[2019-10-15] MEDS ORDERED: HYDROmorphone 0.5 MG/0.5 ML SYRINGE IVP PRN (09:22)
[2019-10-15] MEDS ORDERED: MAGNESIUM HYDROXIDE 2,400 MG/10 ML CUP PO PRN (09:22)
[2019-10-15] MEDS ORDERED: KETOROLAC 15 MG/ML 1 ML VIAL IVP PRN (09:23)
[2019-10-15] MEDS ORDERED: IBUPROFEN 600 MG TAB PO PRN (09:23)
[2019-10-15] MEDS ORDERED: HYDROcodone/APAP 5-325MG 1 EACH TAB PO PRN (09:23)
[2019-10-15] MEDS ORDERED: ACETAMINOPHEN TAB 325 MG TAB PO PRN (09:24)
[2019-10-15] MEDS ORDERED: DOCUSATE 100 MG CAP PO PRN (09:24)
--- NOTE | 2019-10-15 09:31 | P.OP ---
Date of Procedure: 10/15/19 Preoperative Diagnosis: Severe spinal stenosis T11 12 and T12-L1, facet cyst T12-L1, thoracic myelopathy, thoracic cord myelomalacia, lower extremity weakness Postoperative Diagnosis: Same Anesthesia: GETA Pathology: none sent Condition: stable Disposition: PACU Description of Procedure: BRIEF OPERATIVE NOTE Preoperative Diagnosis:Severe spinal stenosis T11 12 and T12-L1, facet cyst T12- L1, thoracic myelopathy, thoracic cord myelomalacia, lower extremity weakness Postoperative Diagnosis:Same Procedure: Laminectomy and agdomhstrybniV43 12 T12-L1, excision of facet cyst to 12 L1 Surgeon: Dr. Smalls Metabolic Specialist: Lissa Plascencia is present throughout the entire the case persistence during positioning, dissection, exposure, visualization, and all crucial elements of the case as well as closure. Anesthesia: General anesthesia Estimated blood loss:Approximately 100 mL Complications: None apparent Components implanted:None Disposition: To recovery room in good stable condition. OPERATIVE INDICATIONS The patient has been having issues in their lower back and lower extremities. Patient has a long history of lumbar issues and has undergone multiple surgeries at his lumbar spine. He was found however to have significant changes in his lower extremities which were consistent with some myelopathy. He is found have severe evidence of stenosis at T11 12 and T12-L1 with a facet cyst at T12-L1. This correlated with his low back and lower extremity symptoms and his weakness in his lower extremities.The patient has been through conservative treatment. He is not having any prolonged benefit despite aggressive conservative treatment. We discussed various treatment options including surgery, and the patient wishes to proceed with surgery We discussed the risk, patient's alternatives and benefits of surgery including but not limited to, risk of bleeding risk of infection, risk of need for further surgery, risk of decreased, loss of motion, loss of function, nerve damage, paralysis, heart attack, blindness and . OPERATIVE SUMMARY After discussing all the risks, patient alternatives and benefits at length, the patient elected to proceed with surgical intervention, signed informed consent, and presented for their procedure. The patient was seen and examined in the preoperative holding area and the surgical site was marked. The patient was given antibiotics and brought to the operating room. The patient was sedated and intubated by anesthesia in standard fashion. The patient was positioned on to the operating room table in a prone position on the appropriate frame which was well-padded and well molded. We were careful to pad any bony prominences and pressure points. We were careful to maintain the patient's cervical spine and good neutral alignment and position throughout. The patient was prepped and draped in a normal standard fashion. An appropriate timeout and keystone protocol performed. We were able to proceed with the surgery. Fluoroscopy was utilized to establish the appropriate level. The patient has prior hardware at L3 4 and his lower lumbar spine and we were able to count up to T12-L1 and T11 12 based on his hardware and his ribs at T12.The local wound area was infiltrated with local anesthetic. An incision was made at the midline longitudinally over the appropriate levelsFrom T11 L1. Dissection was taken down subcutaneously to the level of the fascia which was split midline. Dissection was taken over the lamina. Intraoperative fluoroscopy was taken which showed a marker at the appropriate levelAt T12-L1. With the appropriate level positively confirmed, we were able to proceed with laminectomy At both T11 12 and at T12-L1. The wound was copiously irrigated and suctioned dry as had been done periodically throughout the case. I performed a laminectomy with a combination of curettes and a high- speed bur and Kerrison rongeurs. A small medial facetectomy was performed again further access. A partial foraminotomy was also performed. Portions of the ligamentum flavum were taken down to expose the dura and traversing nerve root. There is obvious severe central and bilateral foraminal stenosis at both levels.There was an obvious facet cyst at T12-L1 seemingly extending primarily from the left side. The facet cyst was significantly adherent to the dura. I was able to take off the posterior dorsal aspect of the facet cyst but I had to leave some of the tissue adherent to the dura to avoid damage the dura itself. I was still able get excellent decompression over the facet cyst itself and get an excellent decompression centrally and at the bilateral neural foramen at T12- L1 as well as T11 12. There is no evidence of dural tear or leak. Good hemostasis maintained. The wound was copiously irrigated and suctioned dry. Good decompression and discectomy was noted. We were able to proceed with closure. The fascia was closed for a watertight closure. The subcuticular tissue was closed with absorbable suture. The wound was cleaned and dried and dressed with the appropriate dressing. The drapes were broken down. The patient was gently rolled back onto their hospital bed being careful to maintain their cervical spine and good neutral alignment and position. They were woken up by anesthesia, extubated, and brought to the recovery room in good stable condition. The patient will be admitted to the hospital for observation and for appropriate postoperative care, medical management and monitoring. We will continue to follow them closely about the postoperative course.
[2019-10-15 09:40] LABS: Glucose,Whole Blood 145 mg/dL (75-99)
--- NOTE | 2019-10-15 09:59 | FL ---
EXAMINATION TYPE: FL guidance operating room, XR lumbar spine 1V DATE OF EXAM: 10/15/2019 CLINICAL HISTORY: Laminectomy with decompression TECHNIQUE: Fluoroscopy. COMPARISON: None. FINDINGS: Fluoroscopic guidance was provided during procedure for performing physician. A total of 6 seconds of fluoroscopic time was utilized during the procedure and 1 spot images was acquired. Plea se see operative report for additional details. IMPRESSION: As Above.
[2019-10-15] MEDS: LACTATED RINGERS 1,000 ML IV SCH (11:02)
[2019-10-15 11:16] LABS: Glucose,Whole Blood 115 mg/dL (75-99)
[2019-10-15] MEDS: SODIUM CHLORIDE 0.9% 1,000 ML IV SCH ×2 (11:17→20:35)
[2019-10-15 16:54] LABS: Glucose,Whole Blood 153 mg/dL (75-99)
[2019-10-15] MEDS: metFORMIN 500 MG TAB PO SCH (18:05)
[2019-10-15 19:48] LABS: Glucose,Whole Blood 168 mg/dL (75-99)
[2019-10-15 20:35] VITALS: RESP 17
[2019-10-15] MEDS: cilostazoL 100 MG TAB PO SCH (20:35)
[2019-10-15] MEDS: allopurinoL 100 MG TAB PO SCH (20:35)
[2019-10-15] MEDS: HYDROcodone/APAP 5-325MG 1 EACH TAB PO PRN (20:43)
[2019-10-15] MEDS ORDERED: ATORVASTATIN 20 MG TAB PO SCH (21:00)
[2019-10-15] MEDS ORDERED: amLODIPine 10 MG TAB PO SCH (21:00)
[2019-10-15] MEDS: BENZOCAINE/MENTHOL LOZENG 1 EACH LOZENGE MUCOUS MEM PRN (23:21)
[2019-10-16] MEDS: LACTATED RINGERS 1,000 ML IV SCH (03:03)
[2019-10-16] MEDS: BENZOCAINE/MENTHOL LOZENG 1 EACH LOZENGE MUCOUS MEM PRN (05:13)
[2019-10-16] MEDS: HYDROcodone/APAP 5-325MG 1 EACH TAB PO PRN (05:13)
[2019-10-16 06:53] LABS: Glucose,Whole Blood 136 mg/dL (75-99)
[2019-10-16] MEDS: allopurinoL 100 MG TAB PO SCH (08:46)
[2019-10-16] MEDS: metFORMIN 500 MG TAB PO SCH (08:47)
[2019-10-16] MEDS: cilostazoL 100 MG TAB PO SCH (08:48)
[2019-10-16] MEDS ORDERED: MELOXICAM 7.5 MG TAB PO SCH (09:00)
[2019-10-16] MEDS ORDERED: atenoloL 50 MG TAB PO SCH (09:00)
[2019-10-16] MEDS ORDERED: lisinopriL 20 MG TAB PO SCH (09:00)
[2019-10-16] MEDS ORDERED: ASPIRIN 81 MG PO SCH (09:00)
[2019-10-16] MEDS ORDERED: SENNOSIDES-DOCUSATE SODIUM 1 EACH TAB PO SCH (09:00)
[2019-10-16] MEDS ORDERED: MULTIVITAMINS, THERA 1 EACH TAB PO SCH (09:00)
[2019-10-16 11:22] LABS: Glucose,Whole Blood 176 mg/dL (75-99)
[2019-10-16 12:18] VITALS: BP 115/56; PULSE 84; TEMP 98.1
[2019-10-16] MEDS: SODIUM CHLORIDE 0.9% 1,000 ML IV SCH (12:40)
--- NOTE | 2019-10-16 13:06 | P.DS ---
Providers Date of admission: 10/16/19 08:07 Attending physician: Johana Smalls Primary care physician: Stated None Hospital Course: The patient presented on the day of admission as per their operative note. He had severe stenosis at T11 12 T12-L1 and underwent laminectomy decompression as per his operative note. He says he feels like he thinks the surgery may have done significant improvement for him. He feels he got up he was doing significantly better than prior to surgery. He says his pain is adequately controlled. He has some trouble getting in and out of bed. He is managing appropriately. Physical Exam The incision site is clean dry and intact. There is no erythema no drainage. There is no purulence no evidence of infection. It was some drainage overnight but this seems to be cleared up now. There is no further bleeding or drainage actively. Abdomen soft and nontender. Chest has good excursion with deep inspiration and expiration. The patient has active and passive range of motion intact at the upper and lower extremities. There is no acute change in neurologic status. He has sustained dorsal flexion plantar flexion and EHL intact. Hospital Course Postoperative day #1 status post laminectomy decompression T12-L1 and T11 12 for his severe spinal stenosis and facet cyst with evidence of thoracic myelopathy. The patient feels that he has had good improvement with his surgery already thus far. The patient has been making good progress postoperatively. They have completed the prophylactic antibiotics without any signs or symptoms of infection. There was a fair amount of bleeding from the incision site overnight but this seems to be stabilized and stopped now. His dressing is changed appears be clear. The patient has been able to advance their diet, and is tolerating diet adequately. The pain was initially controlled with IV medications and is now controlled appropriately with oral medications. The patient has been able to increase their mobilization. The patient has progressed appropriately. I think they are in good stable condition for discharge today. They will be sent home with appropriate prescriptions. He feels that the [place] he took today was not giving him any problems and was hoping with his pain. He'll be sent home with some workup as well. I answered their questions to the best of my ability in a language that they can understand and they are agreeable with the plan. They will follow up as directed in approximately 2 weeks or sooner if he is having problems. Patient Condition at Discharge: Good Plan - Discharge Summary Discharge Rx Participant: No New Discharge Prescriptions: New HYDROcodone/APAP 5-325MG [[place] 5] 1 each PO Q6HR PRN #28 tab PRN Reason: Pain No Action ramipriL [Altace] 5 mg PO DAILY Meloxicam [Mobic] 15 mg PO DAILY Atorvastatin [Lipitor] 20 mg PO HS atenoloL [Tenormin] 50 mg PO DAILY metFORMIN HCL [Glucophage] 500 mg PO BID amLODIPine [Norvasc] 10 mg PO HS hydroCHLOROthiazide [Hydrodiuril] 50 mg PO DAILY allopurinoL [Zyloprim] 100 mg PO BID Multivitamin [Men's Multi-Vitamin] 1 tab PO DAILY Docusate [Colace] 100 mg PO DAILY PRN PRN Reason: Constipation Naproxen [Naprosyn] 500 mg PO Q12HR PRN PRN Reason: Pain Cilostazol [Pletal] 100 mg PO BID Aspirin 81 mg PO DAILY Acetaminophen [Tylenol Arthritis] 650 mg PO Q6H PRN PRN Reason: Pain Discharge Medication List Atorvastatin [Lipitor] 20 mg PO HS 09/24/16 [History] Meloxicam [Mobic] 15 mg PO DAILY 09/24/16 [History] Multivitamin [Men's Multi-Vitamin] 1 tab PO DAILY 09/24/16 [History] allopurinoL [Zyloprim] 100 mg PO BID 09/24/16 [History] amLODIPine [Norvasc] 10 mg PO HS 09/24/16 [History] atenoloL [Tenormin] 50 mg PO DAILY 09/24/16 [History] hydroCHLOROthiazide [Hydrodiuril] 50 mg PO DAILY 09/24/16 [History] metFORMIN HCL [Glucophage] 500 mg PO BID 09/24/16 [History] ramipriL [Altace] 5 mg PO DAILY 09/24/16 [History] Acetaminophen [Tylenol Arthritis] 650 mg PO Q6H PRN 10/09/19 [History] Aspirin 81 mg PO DAILY 10/09/19 [History] Cilostazol [Pletal] 100 mg PO BID 10/09/19 [History] Docusate [Colace] 100 mg PO DAILY PRN 10/09/19 [History] Naproxen [Naprosyn] 500 mg PO Q12HR PRN 10/09/19 [History] HYDROcodone/APAP 5-325MG [[place] 5] 1 each PO Q6HR PRN #28 tab 10/15/19 [Rx] Follow up Appointment(s)/Referral(s): Johana Smalls DO [Doctor of Osteopathic Medicine] - 10/26/19 4:00 pm (with Felipe Gore) Discharge Disposition: HOME SELF-CARE
== END 2019-10-16 16:11 | disposition home or self-care (01) ==
LOC: OR 06:04 → 5NMEDONC 09:21 → OR 10-16 08:07
PROVIDERS: ADMIT Orthopaedic Surgery Orthopaedic Surgery of the Spine; ATTEND Orthopaedic Surgery Orthopaedic Surgery of the Spine
DX: M48.04 Spinal stenosis, thoracic region (principal); M48.062 Spinal stenosis, lumbar region with neurogenic claudication; G95.89 Other specified diseases of spinal cord; E11.51 Type 2 diabetes mellitus with diabetic peripheral angiopathy without gangrene; I10 Essential (primary) hypertension; E78.5 Hyperlipidemia, unspecified; E78.2 Mixed hyperlipidemia; E66.3 Overweight; Z68.29 Body mass index [BMI] 29.0-29.9, adult; Z79.82 Long term (current) use of aspirin; I25.5 Ischemic cardiomyopathy; I25.10 Atherosclerotic heart disease of native coronary artery without angina pectoris; M19.90 Unspecified osteoarthritis, unspecified site; Z98.1 Arthrodesis status; Z87.891 Personal history of nicotine dependence; Z79.899 Other long term (current) drug therapy; Z79.1 Long term (current) use of non-steroidal anti-inflammatories (NSAID); Z79.84 Long term (current) use of oral hypoglycemic drugs; Z88.8 Allergy status to other drugs, medicaments and biological substances; Z83.3 Family history of diabetes mellitus; Z82.49 Family history of ischemic heart disease and other diseases of the circulatory system
CPT/HCPCS: 63266; 63046; 63048; 97162; 86900; 86901; 86850; 72020; G0378; J2250; J1040; J2710; J0690; J2405; J2001; J3010; J1170; J2370; J0330; J2704

== ENCOUNTER 2019-12-03 12:26 | Emergency (ER) | payer MEDICARE ==
[2019-12-03 13:11] VITALS: TEMP 98.3
[2019-12-03] MEDS ORDERED: SODIUM CHLORIDE 0.9% 500 ML 500 ML IV STA (13:29)
--- NOTE | 2019-12-03 13:34 | ED ---
Abdominal Pain HPI - General Chief Complaint: Abdominal Pain Stated Complaint: R Side Pain Time Seen by Provider: 12/03/19 13:03 Source: patient, RN notes reviewed Mode of arrival: wheelchair Limitations: physical limitation - History of Present Illness Initial Comments: 74-year-old male presents emergency Department chief complaint of right-sided abdominal, right flank pain. Patient states she's had pain for last week was seen by PCP on Tuesday pain is worsened since in which he is instructed come emergency department. Patient states the pain in the last 1520 minutes has resolved. Patient states pain is very intense right flank pain. No history kidney stones no prior abdominal surgeries denies any nausea vomiting. Patient has no change in bowel habits no bowel bladder incontinence or retention no dysuria no hematuria patient did have surgery last couple months. - Related Data Home Medications Medication Instructions Recorded Confirmed Atorvastatin [Lipitor] 20 mg PO HS 09/24/16 10/09/19 Meloxicam [Mobic] 15 mg PO DAILY 09/24/16 10/09/19 Multivitamin [Men's Multi-Vitamin] 1 tab PO DAILY 09/24/16 10/09/19 allopurinoL [Zyloprim] 100 mg PO BID 09/24/16 10/09/19 amLODIPine [Norvasc] 10 mg PO HS 09/24/16 10/09/19 atenoloL [Tenormin] 50 mg PO DAILY 09/24/16 10/09/19 hydroCHLOROthiazide [Hydrodiuril] 50 mg PO DAILY 09/24/16 10/09/19 metFORMIN HCL [Glucophage] 500 mg PO BID 09/24/16 10/09/19 ramipriL [Altace] 5 mg PO DAILY 09/24/16 10/09/19 Acetaminophen [Tylenol Arthritis] 650 mg PO Q6H PRN 10/09/19 10/09/19 Aspirin 81 mg PO DAILY 10/09/19 10/09/19 Cilostazol [Pletal] 100 mg PO BID 10/09/19 10/09/19 Docusate [Colace] 100 mg PO DAILY PRN 10/09/19 10/09/19 Naproxen [Naprosyn] 500 mg PO Q12HR PRN 10/09/19 10/09/19 Previous Rx's Medication Instructions Recorded HYDROcodone/APAP 5-325MG [[place] 5] 1 each PO Q6HR PRN #28 tab 10/15/19 Allergies Allergy/AdvReac Type Severity Reaction Status Date / Time No Known Allergies Allergy Verified 12/03/19 13:11 Review of Systems ROS Statement: Those systems with pertinent positive or pertinent negative responses have been documented in the HPI. ROS Other: All systems not noted in ROS Statement are negative. Past Medical History Past Medical History: Diabetes Mellitus, Hyperlipidemia, Hypertension, Musculoskeletal Disorder, Osteoarthritis (OA), Vascular Disorder Additional Past Medical History / Comment(s): chronic back pain, poor circulation in legs History of Any Multi-Drug Resistant Organisms: None Reported Past Surgical History: Back Surgery, Orthopedic Surgery Additional Past Surgical History / Comment(s): Right carotid endarterectomy, back surg. x3, left shoulder rotator cuff repair,carpal tunnel diana., left hip replacement. diana cataracts, pain procedures Past Anesthesia/Blood Transfusion Reactions: Previous Problems w/ Anesthesia Additional Past Anesthesia/Blood Transfusion Reaction / Comment(s): slow to wake up once Past Psychological History: No Psychological Hx Reported Smoking Status: Former smoker Past Alcohol Use History: None Reported Past Drug Use History: None Reported - Past Family History Mother Family Medical History: No Reported History General Exam Limitations: physical limitation General appearance: alert, in no apparent distress Head exam: Present: atraumatic, normocephalic, normal inspection Neck exam: Present: normal inspection, full ROM. Absent: tenderness, meningismus, lymphadenopathy Respiratory exam: Present: normal lung sounds bilaterally. Absent: respiratory distress, wheezes, rales, rhonchi, stridor Cardiovascular Exam: Present: regular rate, normal rhythm, normal heart sounds. Absent: systolic murmur, diastolic murmur, rubs, gallop, clicks Back exam: Present: normal inspection (Multiple old surgical scars noted), full ROM. Absent: tenderness, CVA tenderness (R), CVA tenderness (L), paraspinal tenderness, vertebral tenderness Neurological exam: Present: alert, oriented X3, CN II-XII intact, reflexes normal. Absent: motor sensory deficit Skin exam: Present: warm, dry, intact, normal color. Absent: rash Course Vital Signs 12/03/19 13:08 Temperature 98.3 F Pulse Rate 72 Respiratory 18 Rate Blood Pressure 129/74 O2 Sat by Pulse 97 Oximetry Medical Decision Making - Medical Decision Making 74-year-old male presented for right flank pain. Patient labs, urinalysis and CT reviewed there is no streaking abnormality. Patient may have passed stone his symptoms have resolved with this may refer to his low back pain which is chronic. Patient will be discharged stable condition is no red flag symptoms. Return parameters were discussed. - Lab Data Result diagrams: 12/03/19 13:29 12/03/19 13:29 Lab Results 12/03/19 12/03/19 12/03/19 Range/Units 13:29 13:29 13:29 WBC 7.7 (3.8-10.6) k/uL RBC 5.01 (4.30-5.90) m/uL Hgb 15.2 (13.0-17.5) gm/dL Hct 45.5 (39.0-53.0) % MCV 90.8 (80.0-100.0) fL MCH 30.3 (25.0-35.0) pg MCHC 33.4 (31.0-37.0) g/dL RDW 13.0 (11.5-15.5) % Plt Count 282 (150-450) k/uL Neutrophils % 79 % Lymphocytes % 13 % Monocytes % 5 % Eosinophils % 2 % Basophils % 1 % Neutrophils # 6.1 (1.3-7.7) k/uL Lymphocytes # 1.0 (1.0-4.8) k/uL Monocytes # 0.4 (0-1.0) k/uL Eosinophils # 0.1 (0-0.7) k/uL Basophils # 0.0 (0-0.2) k/uL Sodium 138 (137-145) mmol/L Potassium 4.6 (3.5-5.1) mmol/L Chloride 104 (98-107) mmol/L Carbon Dioxide 25 (22-30) mmol/L Anion Gap 9 mmol/L BUN 16 (9-20) mg/dL Creatinine 0.93 (0.66-1.25) mg/dL Est GFR (CKD-EPI)AfAm >90 (>60 ml/min/1.73 sqM) Est GFR (CKD-EPI)NonAf 82 (>60 ml/min/1.73 sqM) Glucose 136 H (74-99) mg/dL Calcium 10.1 (8.4-10.2) mg/dL Total Bilirubin 0.7 (0.2-1.3) mg/dL AST 36 (17-59) U/L ALT 27 (4-49) U/L Alkaline Phosphatase 88 (38-126) U/L Total Protein 7.5 (6.3-8.2) g/dL Albumin 4.5 (3.5-5.0) g/dL Amylase 95 (30-110) U/L Lipase 108 (23-300) U/L Urine Color Yellow Urine Appearance Clear (Clear) Urine pH 7.0 (5.0-8.0) Ur Specific [place] 1.030 (1.001-1.035) Urine Protein 1+ H (Negative) Urine Glucose (UA) Negative (Negative) Urine Ketones Negative (Negative) Urine Blood Negative (Negative) Urine Nitrite Negative (Negative) Urine Bilirubin Negative (Negative) Urine Urobilinogen <2.0 (<2.0) mg/dL Ur Leukocyte Esterase Negative (Negative) Urine RBC 2 (0-5) /hpf Urine WBC 1 (0-5) /hpf Ur Squamous Epith Cells 1 (0-4) /hpf Hyaline Casts 3 H (0-2) /lpf Urine Mucus Few H (None) /hpf Disposition Clinical Impression: Back pain, Flank pain Disposition: HOME SELF-CARE Condition: Stable Instructions (If sedation given, give patient instructions): Abdominal Pain (ED) Additional Instructions: Please return to the Emergency Department if symptoms worsen or any other concerns. Is patient prescribed a controlled substance at d/c from ED?: No Referrals: Randa Perry MD [Primary Care Provider] - 1-2 days Time of Disposition: 14:30
[2019-12-03 14:01] LABS: Basophils % (A) 1 %; Eosinophils # (A) 0.1 k/uL (0-0.7); Eosinophils % (A) 2 %; HCT 45.5 % (39.0-53.0); HGB 15.2 gm/dL (13.0-17.5); Lymphocytes % (A) 13 %; MCH 30.3 pg (25.0-35.0); MCHC 33.4 g/dL (31.0-37.0); MCV 90.8 fL (80.0-100.0); Mean Platelet Volume 7.1; Monocytes # (A) 0.4 k/uL (0-1.0); Monocytes % (A) 5 %; Neutrophils # (A) 6.1 k/uL (1.3-7.7); Neutrophils % (A) 79 %; Platelet Count 282 k/uL (150-450); RBC 5.01 m/uL (4.30-5.90); WBC 7.7 k/uL (3.8-10.6)
[2019-12-03 14:03] LABS: Appearance,Urine Clear (Clear); Bilirubin,Urine Negative (Negative); Blood,Urine Negative (Negative); Color,Urine Yellow; Glucose,Urine (UA) Negative (Negative); Hyaline Casts,Urine 3 /lpf (0-2); Ketones,Urine Negative (Negative); Leukocyte Esterase,Urine Negative (Negative); Mucus,Urine Few /hpf; Nitrite,Urine Negative (Negative); Protein,Urine 1+ (Negative); RBC,Urine 2 /hpf (0-5); Squamous Epithelial Cell,Urine 1 /hpf (0-4); Urobilinogen,Urine <2.0 mg/dL (<2.0); WBC,Urine 1 /hpf (0-5)
[2019-12-03 14:08] LABS: Potassium 4.6 mmol/L (3.5-5.1)
[2019-12-03 14:10] LABS: ALT 27 U/L (4-49); AST 36 U/L (17-59); African American GFR (CKD) >90 (>60 ml/min/1.73 sqM); Albumin 4.5 g/dL (3.5-5.0); Alkaline Phosphatase 88 U/L (38-126); Amylase 95 U/L (30-110); Anion Gap 9 mmol/L; Blood Urea Nitrogen 16 mg/dL (9-20); Calcium 10.1 mg/dL (8.4-10.2); Carbon Dioxide 25 mmol/L (22-30); Chloride 104 mmol/L (98-107); Glucose 136 mg/dL (74-99); Non-African American GFR(CKD) 82 (>60 ml/min/1.73 sqM); Sodium 138 mmol/L (137-145); Total Bilirubin 0.7 mg/dL (0.2-1.3); Total Protein 7.5 g/dL (6.3-8.2)
--- NOTE | 2019-12-03 14:26 | CT ---
EXAMINATION TYPE: CT abdomen pelvis wo con DATE OF EXAM: 12/03/2019 COMPARISON: None HISTORY: Right sided abdominal pain, Negative history of renal stones, Negative gross hematuria CT DLP: 877.9 mGycm Automated exposure control for dose reduction was used. TECHNIQUE: Helical acquisition of images was performed from the lung bases through the pelvis. FINDINGS: LUNG BASES: Subsegmental changes involving the lungs most typical of atelectasis. Calcified granuloma left lower lobe. There is calcification involving the posterior margin the heart which could be on t he basis of myocardial calcinosis and/or valvular calcification. Correlate clinically. LIVER/GB: There is a tiny hepatic granuloma. PANCREAS: No significant abnormality is seen. SPLEEN: No significant abnormality is seen. ADRENALS: No significant abnormality is seen. KIDNEYS: Indeterminate subcentimeter upper pole left renal hypodensity. ADENOPATHY: None visualized. OSSEOUS STRUCTURES: Postsurgical change with multilevel degenerative disc disease. Prosthetic left h ip noted. Arthropathy of the right hip. Abnormal soft tissue attenuation posterior to the vertebral, likely related to prior surgery. BOWEL: Bowel gas pattern nonspecific. No evidence of obstruction. Appendix normal. Small hiatal kayden ia. OTHER: Aorta of normal caliber with atherosclerotic changes. Atherosclerotic change of the side branc hes including the mesenteric vasculature. Prostate is enlarged correlate for hypertrophy. IMPRESSION: 1. NORMAL APPENDIX. NONSPECIFIC ABDOMEN GAS PATTERN WITH NO DIAGNOSTIC EVIDENCE OF OBSTRUCTION. 2. INDETERMINANT RIGHT RENAL LESION. NO HYDRONEPHROSIS OR NEPHROLITHIASIS.
[2019-12-03] MEDS ORDERED: ACET/COD 300 MG/30 MG STARTER PACK 6 TAB BTL PO STA (14:30)
[2019-12-03 14:49] VITALS: BP 120/78; PULSE 70; RESP 16
== END 2019-12-03 14:53 | disposition home or self-care (01) ==
LOC: EC 12:26
DX: R10.9 Unspecified abdominal pain (principal); M54.5 Low back pain; E11.9 Type 2 diabetes mellitus without complications; E78.5 Hyperlipidemia, unspecified; I10 Essential (primary) hypertension; M19.90 Unspecified osteoarthritis, unspecified site; G89.29 Other chronic pain; Z79.1 Long term (current) use of non-steroidal anti-inflammatories (NSAID); Z79.84 Long term (current) use of oral hypoglycemic drugs; Z79.82 Long term (current) use of aspirin; Z79.899 Other long term (current) drug therapy; Z87.891 Personal history of nicotine dependence; Z96.642 Presence of left artificial hip joint
CPT/HCPCS: 36415; 74176; 80053; 81001; 82150; 83690; 85025; 96360; 99284

== ENCOUNTER → 2019-12-18 | Outpatient (CLI) | payer MEDICARE ==
--- NOTE | 2019-12-18 14:38 | US ---
EXAMINATION TYPE: US kidneys/renal and bladder DATE OF EXAM: 12/18/2019 COMPARISON: CT 15 days ago CLINICAL HISTORY: N28.9 Disorder of kidney and ureter, unspecified. EXAM MEASUREMENTS: Right Kidney: 9.5 x 5.4 x 4.9 cm Left Kidney: 10.4 x 5.5 x 5.2 cm Right Kidney: no hydronephrosis or masses seen Left Kidney: no hydronephrosis, 1.4 x 1.5 x 1.6cm cystic area lateral superior pole Bladder: wnl Bilateral Jets seen: right jet not seen, left jet seen Prostate: enlarged at 5.2 x 4.6 x 5.2cm There is no evidence for hydronephrosis at this point in time. No nephrolithiasis is seen. No jono s are identified. The urinary bladder is satisfactorily distended. Bilateral ureteral jets are not seen. There is thin walled 1.5 cm cyst upper pole level left kidney likely corresponding to CT reynolds l image 67. IMPRESSION: No hydronephrosis noted bilaterally.
== END | disposition home or self-care (01) ==
LOC: RADUSWWP 12:15
PROVIDERS: ATTEND Family Medicine
DX: N28.89 Other specified disorders of kidney and ureter (principal)
CPT/HCPCS: 76770

== ENCOUNTER → 2023-01-10 | Outpatient (CLI) | payer MEDICARE ==
--- NOTE | 2023-01-10 16:33 | US ---
EXAMINATION TYPE: US kidneys/renal and bladder DATE OF EXAM: 01/10/2023 COMPARISON: US 2019, CT 2019 CLINICAL INDICATION: Male, 77 years old with history of N18.30 CHRONIC KIDNEY DISEASE, STAGE 3 UNSPEC IFIED; CKD EXAM MEASUREMENTS: Right Kidney: 10.4 x 5.8 x 5.5 cm Left Kidney: 10.4 x 5.7 x 5.1 cm Right Kidney: No hydronephrosis or masses seen Left Kidney: *Isoechoic lesion versus lobular contour of kidney tissue seen within the left kidney me asurin.1 x 2.2 x 2.5 cm. Anechoic area seen upper pole: 1.8 x 1.3 x 2.1 cm. Bladder: Appears wnl Bilateral Jets seen: No Prostate appears prominent measuring 5.7 cm in width. IMPRESSION: 1. No evidence for obstructive uropathy. Cortical medullary differentiation maintained. 2. Left renal lesion likely representing a cyst seen dating back to 12/03/2019. 3. Prostatomegaly correlate serum PSA.
== END | disposition home or self-care (01) ==
LOC: RADUSWWP 14:43
PROVIDERS: ATTEND Family Medicine
DX: N18.30 Chronic kidney disease, stage 3 unspecified (principal); N40.0 Benign prostatic hyperplasia without lower urinary tract symptoms; N28.89 Other specified disorders of kidney and ureter
CPT/HCPCS: 76770

== ENCOUNTER → 2023-03-11 | Outpatient (CLI) | payer MEDICARE ==
[2023-03-11 15:28] LABS: HCT 42.9 % (39.6-50.0); MCH 29.9 pg (27.0-32.0); MCHC 32.6 g/dL (32.0-37.0); MCV 91.7 FL (80.0-97.0); Mean Platelet Volume 10.7 FL (9.5-12.2); NRBC Per 100 WBC 0 X 10*3/uL (0.00-0.01); Platelet Count 310 X 10*3/uL (140-440); RBC 4.68 X 10*6/uL (4.40-5.60); RDW 13.2 % (11.5-14.5); WBC 6.01 X 10*3/uL (4.50-10.00)
[2023-03-11 15:29] LABS: Basophils # (A) 0.02 X 10*3/uL (0.00-0.10); Basophils % (A) 0.3 %; Eosinophils # (A) 0.23 X 10*3/uL (0.04-0.35); Eosinophils % (A) 3.8 %; Lymphocytes # (A) 1.35 X 10*3/uL (0.90-5.00); Lymphocytes % (A) 22.5 %; Monocytes # (A) 0.52 X 10*3/uL (0.20-1.00); Monocytes % (A) 8.7 %; Neutrophils # (A) 3.86 X 10*3/uL (1.80-7.70); Neutrophils % (A) 64.2 %
[2023-03-11 16:36] LABS: BUN/Creat Ratio 20.93 Ratio (12.00-20.00); Blood Urea Nitrogen 29.3 mg/dL (9.0-27.0); Calcium 10.4 mg/dL (8.7-10.3); Carbon Dioxide 18.6 mmol/L (21.6-31.8); Chloride 103 mmol/L (96-109); Glucose 142 mg/dL (70-110); Potassium 4.6 mmol/L (3.5-5.5); Sodium 136 mmol/L (135-145)
[2023-03-11 20:16] LABS: HIV 2 AB Non-Reactive (Non-Reactive); HIV AB P24 Non-Reactive (Non-Reactive); HIV P24 AG Non-Reactive (Non-Reactive)
== END | disposition home or self-care (01) ==
LOC: LABWHC1 11:14
PROVIDERS: ATTEND Family Medicine
DX: E11.40 Type 2 diabetes mellitus with diabetic neuropathy, unspecified (principal); R41.3 Other amnesia
CPT/HCPCS: 36415; 80048; 82306; 82607; 82747; 83036; 84443; 85025; 86780; 87390

== ENCOUNTER → 2023-03-23 | Outpatient (CLI) | payer MEDICARE ==
[2023-03-23 16:14] LABS: ALT 20 U/L (10-49); AST 25 U/L (14-35); Chol/HDL Ratio 2.61 Ratio; Creatine Kinase 328 U/L (35-257); LDL Cholesterol,Calculated 41.5 mg/dL (0.0-131.0)
== END | disposition home or self-care (01) ==
LOC: LABWHC1 11:23
PROVIDERS: ATTEND Internal Medicine Interventional Cardiology
DX: E78.2 Mixed hyperlipidemia (principal)
CPT/HCPCS: 36415; 80061; 82550; 84450; 84460

== ENCOUNTER → 2023-04-18 | Outpatient (CLI) | payer MEDICARE ==
[2023-04-18 19:04] LABS: Creatine Kinase 412 U/L (35-257)
== END | disposition home or self-care (01) ==
LOC: LABWHC1 13:20
PROVIDERS: ATTEND Psychiatry & Neurology Neurology
DX: G72.9 Myopathy, unspecified (principal)
CPT/HCPCS: 36415; 82306; 82550; 84443

== ENCOUNTER → 2023-09-30 | Outpatient (CLI) | payer MEDICARE | END | disposition home or self-care (01) | LOC: LABPRL 12:34 | PROVIDERS: ATTEND Internal Medicine Nephrology | CPT/HCPCS: 80048; 82040; 82306; 82728; 83540; 83550; 83735; 83970; 84100; 84550; 85025 ==

== ENCOUNTER → 2023-10-07 | Outpatient (CLI) | payer MEDICARE | END | disposition home or self-care (01) | LOC: LABPRL 11:30 | PROVIDERS: ATTEND Nurse Practitioner Family | DX: N18.31 Chronic kidney disease, stage 3a (principal) | CPT/HCPCS: 82043; 82570 ==